=== PATIENT | female | born 1950 | race Two or more races ===

== ENCOUNTER 2018-05-26 06:32 | Day surgery (SDC) | payer MEDICARE, OTHER ==
[2018-05-26] VITALS (8 sets, daily range): BP systolic 135–152; BP diastolic 74–85
[~2018-05-26] VITALS: Ht 149.9 cm; Wt 57.6 kg
[~2018-05-26 06:32] MED LIST: ATORVASTATIN CA10 MG PO; CELEBREX100 MG ORAL; EVISTA60 MG PO; OYSTER SHELL C500 MG PO; VITAMIN D1000 UNI1 PO; VITAMIN E1000 UNIT PO
[2018-05-26] MEDS ORDERED: Lidocaine 1% MPF 10mg/ml 5ml ONE (07:00)
[2018-05-26] MEDS ORDERED: LR 1000ml 1,000 ML IVLG SCH ×2 (07:00→07:01)
[2018-05-26] MEDS ORDERED: Propofol 200mg/20ml IV ONE (07:00)
[2018-05-26] MEDS ORDERED: Atropine Sulfate 0.4mg/ml inj ONE (07:00)
[2018-05-26] MEDS ORDERED: LR 1000ml ONE (07:00)
--- NOTE | 2018-05-26 07:04 | Anethesia Preoperative Eval ---
Anesthesia Pre-op PMH/ROS General Date of Evaluation: May 26, 2018 Time of Evaluation: 07:02 Anesthesiologist: alysha ASA Score: ASA 3 Mallampati Score Class I : Soft palate, uvula, fauces, pillars visible Class II: Soft palate, uvula, fauces visible Class III: Soft palate, base of uvula visible Class IV: Only hard plate visible Mallampati Classification: Class II Surgeon: merlin Diagnosis: gerd, ibs Surgical Procedure: egd/colonoscopy Anesthesia History: none Social History: smoking - nonsmoker Family History: no anesthesia problems Allergies: Coded Allergies: No Known Allergies (Unverified , 11/03/12) Medications: see eMAR Past Medical History Cardiovascular: Reports: other - hypercholesterolemia Gastrointestinal/Genitourinary: Reports: GERD, other - ibs PSxH Narrative: knee surgery, cholecystectomy, hysterectomy Anesthesia Pre-op Phys. Exam Physician Exam Last Vital Signs Date Time Temp Pulse Resp B/P (MAP) Pulse Ox O2 Delivery O2 Flow Rate FiO2 05/26/18 07:00 Room Air Constitutional: NAD Neurologic: CN 2-12 intact Cardiovascular: RRR Respiratory: CTA Gastrointestinal: S/NT/ND Airway Exam Mallampati Score: Class II MO: full Neck: supple TMD: 2fb ROM: full Teeth: missing Dentures: upper, lower Anesthesia Pre-op A/P Risk Assessment & Plan Assessment: asa3 Plan: mac Status Change Before Surgery: No Pre-Antibiotics Drug: Norma Barbour MD May 26, 2018 07:04
[2018-05-26] MEDS ORDERED: Atropine Inj 1mg/10ml Syr IV PRN (07:15)
[2018-05-26] MEDS ORDERED: Midazolam 2mg/2ml Inj IVP PRN (07:15)
[2018-05-26] MEDS ORDERED: DiphenhydrAMINE 50mg/ml Inj IVP PRN (07:15)
[2018-05-26] MEDS ORDERED: Labetalol 5mg/ml 20ml vial IV PRN (07:15)
[2018-05-26] MEDS ORDERED: fentaNYL 100 mcg/2 mL IV PRN (07:15)
--- NOTE | 2018-05-26 07:42 | Short Stay Surgery H&P ---
History of Present Illness History of Present Illness Chief Complaint Abdominal pains, GERDs, constipation and history of colon polyps. HPI Orquidea Goldman is a 67 year old female who was admitted on for Gerd, abdominal pains and colon polyps Patient History Allergies: Coded Allergies: No Known Allergies (Unverified , 11/03/12) PAST MEDICAL HISTORY: (1) Hyperlipidemia (2) Osteoporosis Medication History Scheduled Atorvastatin Calcium* (Lipitor*), 20 MG PO QHS, (Reported) Celecoxib* (Celebrex*), 100 MG ORAL , (Reported) Cholecalciferol (Vitamin D3)* (Vitamin D*), 1,000 UNIT PO DAILY, (Reported) Raloxifene Hcl* (Evista*), 60 MG PO DAILY, (Reported) Miscellaneous Medications Calcium Carbonate (Oyster Shell Calcium), 1,000 MG PO, (Reported) Review of Systems Cardiovascular: Reports: no symptoms Respiratory: Reports: no symptoms Skeletal: Reports: osteroarthritis Gastrointestinal: Reports: gastro esophageal reflux disease Genitourinary: Reports: no symptoms, see HPI, renal insufficiency, endstage renal disease, dialysis, UTI, urinary retention, BPH, other Neurologic: Reports: no symptoms, see HPI, seizure, stroke/TIA, neuropathy, neuro muscular disease, other Endocrine: Reports: no symptoms, see HPI, diabetes - type 1, diabetes - type 2 , thyroid, post menopausal, other Hematologic: Reports: no symptoms, see HPI, anemia, coagulopathy, prior transfusion, other Physical Exam Vital Signs Last Vital Signs Date Time Temp Pulse Resp B/P (MAP) Pulse Ox O2 Delivery O2 Flow Rate FiO2 05/26/18 07:06 97.7 80 20 152/85 (107) 96 97.7 05/26/18 07:00 Room Air Skin: normal HENT: normal Heart: normal Lungs: normal Abdomen: normal Extremities: normal Genitourinary: normal Plan Plan of Care Upper and lower Gi endoscopies. Preop Interventions None. Summary of Findings See the reports Attestation Are the patient's medical conditions optimized for surgery? Attestation Response: yes Jimmy Malcolm MD May 26, 2018 07:42
--- NOTE | 2018-05-26 07:43 | Pre-Procedure Note/Attestation ---
Pre-Procedure Note/Attestation Complete Prior to Procedure Planned Procedure: left Procedure Narrative: Examination of the upper and the lower GI tract via endoscopy Indications for Procedure Pre-Operative Diagnosis: R/O colon polyps/ gastritis/peptic ulcer Attestation I attest that I discussed the nature of the procedure; its benefits; risks and complications; and alternatives (and the risks and benefits of such alternatives ), prior to the procedure, with the patient (or the patient's legal billing representative). I attest that, if there was a reasonable possibility of needing a blood transfusion, the patient (or the patient's legal billing representative) was given the [place] [facility] [employer] [facility] standardized written summary, pursuant to the Krishna Lorne Blood Safety Act ([place] Health and Safety Code # 1645, as amended). I attest that I re-evaluated the patient just prior to the surgery and that there has been no change in the patient's H&P, except as documented below: Jimmy Malcolm MD May 26, 2018 07:43
--- NOTE | 2018-05-26 08:13 | Endoscopy Procedure Note ---
Endoscopy Procedure Note General Indication for Procedure: Abdominal pains/GERDs and history of colon polyps/ constipation Procedures Performed: EGD - Completely normal upper GI endoscopy , biopsy done per random from gastric body., colonoscopy - Poor colon clean up. 4mm flat soft benign looking polypoid lesion removed from 45 CM from anal opening otherwise normal total colonoscopy. Specimen: yes Pt Tolerated Procedure Well: Yes Estimated Blood Loss: none Anesthesia Anesthesiologist: Dr. Keller Anesthesia: moderate sedation Medications Medication Given: see anesthesia record Inserted Devices Implant(s) used?: No Quality Quality of Bowel Preparation: Poor Did scope reach the cecum?: Yes Was there any complications?: No GI Core Measures 50 yrs or older w/o bx or poly: Yes 10yrs. F/U not recommended: Yes 10 yrs. F/U needed: Yes 18 years or older w/prev. colo: Yes Med reason:<3 yrs.: System Reason:<3 yrs.: Last colonoscopy >= to 3yrs: Yes Jimmy Malcolm MD May 26, 2018 08:13
--- NOTE | 2018-05-26 08:14 | Discharge Instructions ---
Discharge Instructions Discharge Instructions Follow up with: Visit doctor after 2 weeks in the office For Congestive Heart Failure Reminder Report to your physician any weight gain of 5 pounds or more in one week. Jimmy Malcolm MD May 26, 2018 08:14
--- NOTE | 2018-05-26 08:27 | Immediate Post-Op Evaluation ---
Immediate Post-Op Evalulation Immediate Post-Op Evalulation Procedure: egd/colonoscopy/bx Date of Evaluation: May 26, 2018 Time of Evaluation: 08:27 IV Fluids: 400ml lr Blood Products: none Estimated Blood Loss: negligible Blood Pressure Systolic: 135 Blood Pressure Diastolic: 81 Pulse Rate: 75 Respiratory Rate: 18 O2 Sat by Pulse Oximetry: 96 Temperature (Fahrenheit): 97.7 Pain Score (1-10): 0 Nausea: No Vomiting: No Complications none Patient Status: awake, reacts, patent Hydration Status: adequate Drug: Norma Barbour MD May 26, 2018 08:27
--- NOTE | 2018-05-26 08:29 | 48 Hour Post Anesthesia Eval ---
Post Anesthesia Evaluation Procedure: egd/colonoscopy/bx Date of Evaluation: May 26, 2018 Time of Evaluation: 08:29 Blood Pressure Systolic: 143 0: 76 Pulse Rate: 76 Respiratory Rate: 18 Temperature (Fahrenheit): 97.7 O2 Sat by Pulse Oximetry: 97 Airway: patent Nausea: No Vomiting: No Pain Intensity: 0 Hydration Status: adequate Cardiopulmonary Status: stable Mental Status/LOC: patient returned to baseline Post-Anesthesia Complications: none Follow-up care needed: N/A Norma Viramontes MD May 26, 2018 08:29
--- NOTE | 2018-05-26 10:30 | Operative Note - Dictated ---
DATE OF OPERATION: 05/26/2018 SURGEON: Jimmy Malcolm M.D. PROCEDURE: Total colonoscopy with polypectomy. PREOPERATIVE DIAGNOSES: 1. History of colon polyps. 2. Abdominal pain. POSTOPERATIVE DIAGNOSES: 1. Poor colon preparation. 2. Incidental finding of 4 mm flat, soft polypoid lesion at the level of 45 cm from the anus, which was removed with cold biopsy forceps. Otherwise, normal total colonoscopy. MEDICATION USED: Per Dr. Keller, anesthesiologist. INSTRUMENT: GIF Olympus video colonoscope. DESCRIPTION OF PROCEDURE: The patient after arriving in the endoscopy unit, was told about risks and benefits of the procedure, which she accepted and signed informed consent. She was then put on the left lateral decubitus position and after adequate IV sedation, the scope was gently passed through the anal area and a retroflexion maneuver, which was applied in this section revealed normal finding without any evidence of major hemorrhoid or colonic rectal pathology. The scope was passed through normal rectum and reaching towards the rectosigmoid angle and gradually advanced into the left descending colon. These areas were quite redundant. Incidentally, a soft polypoid lesion with length of 4 mm, which completely looked benign was found, which was totally removed with cold biopsy forceps and the specimen was sent to the pathology lab. At this time, the scope was gradually with maneuvers passed through the redundancy of the left colon reaching to the splenic flexure and finally was guided into the transverse colon, hepatic flexure, and all the way down to the base of the cecum. The colon cleanup was inadequate and was poor as there was soft stool pieces adhering to the colonic mucosa particular in the right colon and cecal area, which took significant amount of time to be irrigated and clean. However, there was no any gross pathology as much as carefully when examined in this area. Finally, within six minutes, the scope was gradually pulled out and finding no other pathology, procedure was terminated. The patient tolerated the procedure well and left the endoscopy room in good condition. Jimmy Malcolm M.D. DR: GALINDO JOB#: [id number] CC:
--- NOTE | 2018-05-26 17:00 | Operative Note - Dictated ---
DATE OF OPERATION: 05/26/2018 PROCEDURE: Esophagogastroduodenoscopy with biopsy. SURGEON: Jimmy Malcolm M.D. PREOPERATIVE DIAGNOSIS: Abdominal pain and history of gastroesophageal reflux. POSTOPERATIVE DIAGNOSIS: Completely normal upper GI endoscopy. Biopsy was done per random from gastric body. MEDICATION USED: Per Dr. Keller, anesthesiologist. INSTRUMENT: GIF Olympus upper GI video endoscope. DESCRIPTION OF PROCEDURE: The patient after arriving in the endoscopy unit, was told about risks and benefits of the procedure, which she accepted and signed informed consent. At this time, she was put on the left lateral decubitus position. After adequate IV sedation, the scope was gently passed through the cricopharyngeal area and was lodged into the esophagus and gradually advanced towards gastroesophageal junction. The entire length of the esophagus looked normal without any pathology. No evidence of inflammatory process, ulcers, stricture, etc. GE junction also looked normal. At this time, the scope was advanced into the stomach. Gastric cavity was distended with insufflation of air and the areas of the fundus and the body and the antrum were examined very closely without finding any pathology. A retroflexion maneuver was also applied and the area of the gastroesophageal junction was examined in a closer fashion, which revealed no abnormalities. At this time, the scope was straightened and passed into the antrum from there into pylorus and first and second portion of duodenum were also found to be completely normal. Finally, the scope was pulled back into the stomach and in the mid part of the stomach and posterior wall, randomly a biopsy was obtained from gastric tissue. At this point, the procedure was terminated and the patient tolerated the procedure well. Jimmy Malcolm M.D. DR: JEREMIAH JOB#: [id number] CC:
== END 2018-05-26 09:50 | disposition home or self-care (01) ==
LOC: GAS 06:32
DX: K29.50 Unspecified chronic gastritis without bleeding (principal); K21.9 Gastro-esophageal reflux disease without esophagitis; K63.5 Polyp of colon; Z86.010 Personal history of colon polyps; E78.5 Hyperlipidemia, unspecified; M81.0 Age-related osteoporosis without current pathological fracture; M19.90 Unspecified osteoarthritis, unspecified site; K58.9 Irritable bowel syndrome, unspecified; Z90.49 Acquired absence of other specified parts of digestive tract; Z90.710 Acquired absence of both cervix and uterus
CPT/HCPCS: 43239; 45380; J0461; J2704; J7120; 94003; 94150